=== PATIENT | female | born 1955 | race Caucasian/White ===

== ENCOUNTER 2016-09-30 16:35 | Emergency (ER) | payer OTHER ==
--- NOTE | 2016-09-30 18:18 | ED NURSING NOTES ---
Clinical Report - Nurses [facility] [address] [place] [address] 09/30/2016 16:38 Patient: ERROL FRANKLIN TRIAGE Triage time 1738 PM. Acuity: LEVEL 3. Chief Complaint: (ulcer on left lower leg). Alert. No acute distress. SEPSIS SCREEN: Sepsis Screen. Negative (no infection suspected/documented). MERCEDES COMA SCORE: Mercedes Coma Scale: 15- eyes open spontaneously (4); best verbal response- oriented x 4 (5); best motor response- obeys commands (6). --17:48 Claudia Patrick R.N. 17:37 09/30/16. BP: 135/81. HR: 91. RR: 16. O2 saturation: 97% on room air. Temp: 98.4 F (oral). Pain level now: 11/27. --17:48 Claudia Patrick R.N. Weight: 80.7 kg stated. Height/Length: 62 inches Per Patient. BMI: 32.6. --17:42 Claudia Patrick R.N. Medications None. --17:42 Claudia Patrick R.N. Medication/allergy information source: the patient. --17:48 Claudia Patrick R.N. Allergies No Known Drug Allergy. --17:42 Claudia Patrick R.N. History Arrived by private vehicle. Historian: patient. Primary physician (none). ( Pt states has suffered from ulcers in her lower extremities before, now presents from a clinic "unknown name"). This is a new problem and onset was gradual. (1 weeks). No fever, weakness, cough, difficulty breathing or skin rash. Denies muscle aches. Treatment ELEMENTARY SCHOOL PRINCIPAL: (cream- unknown). See EMS report. PAST MEDICAL HX: Immunizations: up-to-date. Last normal menstrual period unknown- years ago. SOCIAL HX: Never smoker. No alcohol use or drug use. No infectious disease exposure. ABUSE ASSESSMENT: No report of abuse. SELF HARM ASSESSMENT: A self harm assessment was performed. The patient answered "no" to the question "Do you have thoughts of harming or killing yourself?" and "Have you recently had thoughts about harming or killing others?". FALL RISK ASSESSMENT: Fall risk assessment completed. No fall risk identified. NUTRITIONAL RISK ASSESSMENT: The nutritional risk assessment revealed no deficiencies. FUNCTIONAL ASSESSMENT: Functional assessment: no impairments noted. LEARNING NEEDS ASSESSMENT: The learning needs assessment revealed no barriers. SKIN INTEGRITY ASSESSMENT: Skin integrity risk assessment completed. No skin integrity risk identified. --17:48 Claudia Patrick R.N. PROBLEMS: Dysfunctional Uterine Bleeding. Immunizations. LNMP - Last Normal Menstrual Period. Skin ulcer. Prolapsed uterus. --17:42 Claudia Patrick R.N. ADDITIONAL SURGERIES: Cholecystectomy. --17:42 Claudia Patrick R.N. Interventions ID band on patient. --17:48 Claudia Patrick R.N. PHYSICAL ASSESSMENT Ambulatory to room. ( Pt with left lower leg ulcer measuring [id number] with redness and tenderness around.). GENERAL / NEURO / PSYCH: Alert. Oriented X 4. Appears in no acute distress. RESPIRATORY: Respirations not labored. Breath sounds within normal limits. CVS: Pulses: left popliteal 2+, right dorsalis pedis 2+, left dorsalis pedis 2+, right posterior tibial 2+ and left posterior tibial 2+. Capillary refill less than 2 seconds. GI / : Abdomen nontender. SKIN: Skin intact. Skin is warm and dry. Normal skin turgor. --17:51 Claudia Patrick R.N. NURSING PROGRESS NOTES The initial plan of care for this patient has been created This plan of care was discussed with the patient. Patient ID band checked for patient name, birthdate and medical record number: patient confirmed. Blood samples drawn by tech per protocol ; labeled in presence of the patient and sent to lab: rainbow set. Reassurance given. Patient identifiers checked. Call light placed in reach. Side rails up x 1. Brakes of bed on. --17:52 Claudia Patrick R.N. Checked patient name and birthdate: patient confirmed. Blood samples drawn from the right antecubital space with syringe and 23g butterfly by tech per protocol ; labeled in presence of the patient and sent to lab: rainbow set: cardiac enzymes (1st set). --18:11 Oli Lawrence Checked patient name and birthdate: patient confirmed. Wound to left ankle swabbed for culture; collected by tech. Specimen labeled in the presence of the patient. --18:12 Oli Lawrence. DISPOSITION / DISCHARGE Condition at departure: unchanged and stable. The goals identified in the patient's plan of care were met. No learning barriers present. Discharge instructions provided and reviewed with the patient. Reviewed medication(s) side effects, precautions, dosing and course information. Prescription(s) given to the patient. Reviewed wound care instructions. Reviewed referral to a interior design teacher for followup (wound care clinic). Activity restrictions (minimal use of injured extremity and rest) reviewed. Patient verbalized understanding. Written instructions provided in Niuean. The patient was discharged by the physician technical support assistant. She was discharged home and accompanied by letter sorting machine operator. She left the Emergency Department ambulatory and via private vehicle. Rn Hedis driving. FALL RISK ASSESSMENT: Fall risk assessment completed. No fall risk identified. --18:48 Claudia Patrick R.N. 18:40 09/30/16. BP: 135/95 (regular adult cuff) taken on the left arm, via an automated monitor, while sitting. HR: 56. RR: 12. O2 saturation: 96% on room air. Temp: 98.2 F. Pain level now: 0/10. --18:48 Clauida Patrick R.N. Departure time: 1853 PM. --18:52 Claudia Patrick R.N. Locked/Released at 09/30/2016 18:52 by Claudia Patrick R.N.
--- NOTE | 2016-09-30 18:18 | ED CLINICAL REPORT ---
Clinical Report - Physicians/Mid Levels [facility] [address] [place] [address] 09/30/2016 16:38 Patient: ERROL FRANKLIN Time Seen: 17:53 Sep 30 2016. Arrived- By private vehicle. Historian- patient. HISTORY OF PRESENT ILLNESS Chief Complaint: SKIN RASH. 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 Not itchy or painful. It has been located on the left lower extremity. A cause has been identified. (The patient reports she has been self-medicating in treating her own pulse over the last 1 month. Today decided to come to the ER. No fevers no chills. Denies diabetic status. His has a history of poor vascular circulation.). Similar symptoms previously: None. REVIEW OF SYSTEMS No fever, chills, cough, nausea or diarrhea. All systems otherwise negative, except as recorded above. SOCIAL HISTORY Never smoker. No alcohol use or drug use. ADDITIONAL NOTES The nursing notes have been reviewed. PHYSICAL EXAM Vital Signs: 09/30/2016 17:37 BP: 135/81. HR: 91. RR: 16. O2 saturation: 97%. Temp: 98.4 F. Pain level now: 4/10. Appearance: Alert. No acute distress. CVS: Normal heart rate and rhythm. Heart sounds normal. Rate normal. Respiratory: No respiratory distress. Breath sounds normal. Skin: No erythema. No tender indurated area. No cellulitis. Skin rash present- left quarter size distal tib/fib, medial ulcer 2nd stage. No abscess. Neuro: Oriented X 3. LABS, X-RAYS, AND EKG Laboratory Tests: CBC w Diff: (KARTIK: 09/30/2016 17:58) ( MsgRcvd 09/30/2016 18:16) Final results Test Result Flag Units (Reference) WHITE BLOOD COUNT 8.2 K/uL (4.5-11.5) RED BLOOD COUNT 4.34 M/uL (4.00-5.20) HEMOGLOBIN 12.9 gm/dL (12.0-16.0) HEMATOCRIT 38.5 % (36.0-46.0) MEAN CELL VOLUME 89 fL (80-100) MEAN CORPUSCULAR HGB 30 pg (26-34) MEAN CORPUSCULAR HGB CONC 33 g/dL (31-37) RED CELL DISTRIBUTION WIDTH 13.5 % (11.6-14.8) PLATELET COUNT 261 K/uL (150-400) NEUTROPHIL % 73.7 % (50-75) LYMPH % 17.5 L % (25-40) MONO % 7.6 % (3-14) EOSINOPHIL % 1.0 % (0-4) BASOPHIL % 0.2 % (0-2) . PROGRESS AND PROCEDURES Course of Care: Non diabetic female with h/o peripheral vascular disease with small ulcer, with minimal erythema, and no signs of leukocytosis. Pt very stable. Good distal pulse. Good distal rom/ sensation. Pt stable. Pt wound packed, and dressings applied. POC glucose 83. Patient is stable. The patient's symptoms are unchanged. Patient/family counseled. Disposition: Discharged. CLINICAL IMPRESSION Stage 2 pressure ulcer with partial thickness skin loss on the left ankle. Inflammation present. INSTRUCTIONS (do not remove dressing for 3-4 days, cover while in shower, and follow up as instructed below). Prescription Medications: Keflex 500 mg: take 1 capsule orally every 6 hours for 7 days. No refills. Substitution is permissible. Follow-up with: [facility], , , [facility], [address] [place] [address] [address], [place] [phone] Follow up. Call for the next available appointment. Follow-up with: Ray Shepherd DPM, Podiatry, , [address] [place] [address] [address], [place], [address] Follow up. Call for the next available appointment. (Electronically signed by Eleonora Lui P.A.-C 09/30/2016 18:38)
--- NOTE | 2016-09-30 18:18 | ED ORDER SUMMARY ---
..... Patient: ERROL FRANKLIN OrderSheet [facility] VisitID: [id number] [address] [place] [address] 61y, F Registration Date/Time: 09/30/2016 ORDER SHEET Weight: 80.7 kg (stated) Allergies: No Known Drug Allergy GENERAL ORDERS: CBC w Diff Urgent (17:42 09/30/2016 EKoroleva P.A.-C) (17:53 EHassan R.N.) POC Glucose (17:42 09/30/2016 EKoroleva P.A.-C) (17:53 EHassan R.N.) Culture, Wound Surface (Ankle) (L) Urgent (17:45 09/30/2016 EKoroleva P.A.-C) (17:53 EHassan R.N.) MEDICATION ORDERS: IV FLUIDS: ORDER SHEET NOTES: [Electronically signed by Eleonora Lui PJanuaryAJanuary-Clemencia (18:38 09/30/2016)] [Electronically signed by Claudia Patrick R.N. (18:52 09/30/2016)] [Electronically locked/signed by Claudia Patrick R.N. (18:52 09/30/2016)]
--- NOTE | 2016-09-30 18:18 | ED CLINICAL REPORT ---
Clinical Report - Physicians/Mid Levels [facility] [address] [place] [address] 09/30/2016 16:38 Patient: ERROL FRANKLIN Time Seen: 17:53 Sep 30 2016. Arrived- By private vehicle. Historian- patient. HISTORY OF PRESENT ILLNESS Chief Complaint: SKIN RASH. 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 Not itchy or painful. It has been located on the left lower extremity. A cause has been identified. (The patient reports she has been self-medicating in treating her own pulse over the last 1 month. Today decided to come to the ER. No fevers no chills. Denies diabetic status. His has a history of poor vascular circulation.). Similar symptoms previously: None. REVIEW OF SYSTEMS No fever, chills, cough, nausea or diarrhea. All systems otherwise negative, except as recorded above. SOCIAL HISTORY Never smoker. No alcohol use or drug use. ADDITIONAL NOTES The nursing notes have been reviewed. PHYSICAL EXAM Vital Signs: 09/30/2016 17:37 BP: 135/81. HR: 91. RR: 16. O2 saturation: 97%. Temp: 98.4 F. Pain level now: 4/10. Appearance: Alert. No acute distress. CVS: Normal heart rate and rhythm. Heart sounds normal. Rate normal. Respiratory: No respiratory distress. Breath sounds normal. Skin: No erythema. No tender indurated area. No cellulitis. Skin rash present- left quarter size distal tib/fib, medial ulcer 2nd stage. No abscess. Neuro: Oriented X 3. LABS, X-RAYS, AND EKG Laboratory Tests: CBC w Diff: (KARTIK: 09/30/2016 17:58) ( MsgRcvd 09/30/2016 18:16) Final results Test Result Flag Units (Reference) WHITE BLOOD COUNT 8.2 K/uL (4.5-11.5) RED BLOOD COUNT 4.34 M/uL (4.00-5.20) HEMOGLOBIN 12.9 gm/dL (12.0-16.0) HEMATOCRIT 38.5 % (36.0-46.0) MEAN CELL VOLUME 89 fL (80-100) MEAN CORPUSCULAR HGB 30 pg (26-34) MEAN CORPUSCULAR HGB CONC 33 g/dL (31-37) RED CELL DISTRIBUTION WIDTH 13.5 % (11.6-14.8) PLATELET COUNT 261 K/uL (150-400) NEUTROPHIL % 73.7 % (50-75) LYMPH % 17.5 L % (25-40) MONO % 7.6 % (3-14) EOSINOPHIL % 1.0 % (0-4) BASOPHIL % 0.2 % (0-2) . PROGRESS AND PROCEDURES Course of Care: Non diabetic female with h/o peripheral vascular disease with small ulcer, with minimal erythema, and no signs of leukocytosis. Pt very stable. Good distal pulse. Good distal rom/ sensation. Pt stable. Pt wound packed, and dressings applied. POC glucose 83. Patient is stable. The patient's symptoms are unchanged. Patient/family counseled. Disposition: Discharged. CLINICAL IMPRESSION Stage 2 pressure ulcer with partial thickness skin loss on the left ankle. Inflammation present. INSTRUCTIONS (do not remove dressing for 3-4 days, cover while in shower, and follow up as instructed below). Prescription Medications: Keflex 500 mg: take 1 capsule orally every 6 hours for 7 days. No refills. Substitution is permissible. Follow-up with: [facility], , , [facility], [address] [place] [address] [address], [place] [phone] Follow up. Call for the next available appointment. Follow-up with: Ray Shepherd DPM, Podiatry, , [address] [place] [address] [address], [place], [address] Follow up. Call for the next available appointment. (Electronically signed by Eleonora Lui P.A.-C 09/30/2016 18:38)
--- NOTE | 2016-09-30 18:18 | ED NURSING NOTES ---
Clinical Report - Nurses [facility] [address] [place] [address] 09/30/2016 16:38 Patient: ERROL FRANKLIN TRIAGE Triage time 1738 PM. Acuity: LEVEL 3. Chief Complaint: (ulcer on left lower leg). Alert. No acute distress. SEPSIS SCREEN: Sepsis Screen. Negative (no infection suspected/documented). MERCEDES COMA SCORE: Mercedes Coma Scale: 15- eyes open spontaneously (4); best verbal response- oriented x 4 (5); best motor response- obeys commands (6). --17:48 Claudia Patrick R.N. 17:37 09/30/16. BP: 135/81. HR: 91. RR: 16. O2 saturation: 97% on room air. Temp: 98.4 F (oral). Pain level now: 11/27. --17:48 Claudia Patrick R.N. Weight: 80.7 kg stated. Height/Length: 62 inches Per Patient. BMI: 32.6. --17:42 Claudia Patrick R.N. Medications None. --17:42 Claudia Patrick R.N. Medication/allergy information source: the patient. --17:48 Claudia Patrick R.N. Allergies No Known Drug Allergy. --17:42 Claudia Patrick R.N. History Arrived by private vehicle. Historian: patient. Primary physician (none). ( Pt states has suffered from ulcers in her lower extremities before, now presents from a clinic "unknown name"). This is a new problem and onset was gradual. (1 weeks). No fever, weakness, cough, difficulty breathing or skin rash. Denies muscle aches. Treatment HOSPITAL[employer] WORKERS: (cream- unknown). See EMS report. PAST MEDICAL HX: Immunizations: up-to-date. Last normal menstrual period unknown- years ago. SOCIAL HX: Never smoker. No alcohol use or drug use. No infectious disease exposure. ABUSE ASSESSMENT: No report of abuse. SELF HARM ASSESSMENT: A self harm assessment was performed. The patient answered "no" to the question "Do you have thoughts of harming or killing yourself?" and "Have you recently had thoughts about harming or killing others?". FALL RISK ASSESSMENT: Fall risk assessment completed. No fall risk identified. NUTRITIONAL RISK ASSESSMENT: The nutritional risk assessment revealed no deficiencies. FUNCTIONAL ASSESSMENT: Functional assessment: no impairments noted. LEARNING NEEDS ASSESSMENT: The learning needs assessment revealed no barriers. SKIN INTEGRITY ASSESSMENT: Skin integrity risk assessment completed. No skin integrity risk identified. --17:48 Claudia Patrick R.N. PROBLEMS: Dysfunctional Uterine Bleeding. Immunizations. LNMP - Last Normal Menstrual Period. Skin ulcer. Prolapsed uterus. --17:42 Claudia Patrick R.N. ADDITIONAL SURGERIES: Cholecystectomy. --17:42 Claudia Patrick R.N. Interventions ID band on patient. --17:48 Claudia Patrick R.N. PHYSICAL ASSESSMENT Ambulatory to room. ( Pt with left lower leg ulcer measuring 7yaG3rd with redness and tenderness around.). GENERAL / NEURO / PSYCH: Alert. Oriented X 4. Appears in no acute distress. RESPIRATORY: Respirations not labored. Breath sounds within normal limits. CVS: Pulses: left popliteal 2+, right dorsalis pedis 2+, left dorsalis pedis 2+, right posterior tibial 2+ and left posterior tibial 2+. Capillary refill less than 2 seconds. GI / : Abdomen nontender. SKIN: Skin intact. Skin is warm and dry. Normal skin turgor. --17:51 Claudia Patrick R.N. NURSING PROGRESS NOTES The initial plan of care for this patient has been created This plan of care was discussed with the patient. Patient ID band checked for patient name, birthdate and medical record number: patient confirmed. Blood samples drawn by tech per protocol ; labeled in presence of the patient and sent to lab: rainbow set. Reassurance given. Patient identifiers checked. Call light placed in reach. Side rails up x 1. Brakes of bed on. --17:52 Claudia Patrick R.N. Checked patient name and birthdate: patient confirmed. Blood samples drawn from the right antecubital space with syringe and 23g butterfly by tech per protocol ; labeled in presence of the patient and sent to lab: rainbow set: cardiac enzymes (1st set). --18:11 Oli Lawrence Checked patient name and birthdate: patient confirmed. Wound to left ankle swabbed for culture; collected by tech. Specimen labeled in the presence of the patient. --18:12 Oli Lawrence. DISPOSITION / DISCHARGE Condition at departure: unchanged and stable. The goals identified in the patient's plan of care were met. No learning barriers present. Discharge instructions provided and reviewed with the patient. Reviewed medication(s) side effects, precautions, dosing and course information. Prescription(s) given to the patient. Reviewed wound care instructions. Reviewed referral to a cut off saw set up operator for followup (wound care clinic). Activity restrictions (minimal use of injured extremity and rest) reviewed. Patient verbalized understanding. Written instructions provided in Iranian. The patient was discharged by the physician human resources assistant. She was discharged home and accompanied by chha. She left the Emergency Department ambulatory and via private vehicle. Car Salter driving. FALL RISK ASSESSMENT: Fall risk assessment completed. No fall risk identified. --18:48 Claudia Patrick R.N. 18:40 09/30/16. BP: 135/95 (regular adult cuff) taken on the left arm, via an automated monitor, while sitting. HR: 56. RR: 12. O2 saturation: 96% on room air. Temp: 98.2 F. Pain level now: 0/10. --18:48 Claudia Patrick R.N. Departure time: 1853 PM. --18:52 Claudia Patrick R.N. Locked/Released at 09/30/2016 18:52 by Claudia Patrick R.N.
--- NOTE | 2016-09-30 18:18 | ED ORDER SUMMARY ---
..... Patient: ERROL FRANKLIN OrderSheet [facility] VisitID: [id number] [address] [place] [address] 61y, F Registration Date/Time: 09/30/2016 ORDER SHEET Weight: 80.7 kg (stated) Allergies: No Known Drug Allergy GENERAL ORDERS: CBC w Diff Urgent (17:42 09/30/2016 EKoroleva P.A.-C) (17:53 EHassan R.N.) POC Glucose (17:42 09/30/2016 EKoroleva P.A.-C) (17:53 EHassan R.N.) Culture, Wound Surface (Ankle) (L) Urgent (17:45 09/30/2016 EKoroleva P.A.-C) (17:53 EHassan R.N.) MEDICATION ORDERS: IV FLUIDS: ORDER SHEET NOTES: [Electronically signed by Eleonora Lui PJanuaryAJanuary-Clemencia (18:38 09/30/2016)] [Electronically signed by Claudia Patrick R.N. (18:52 09/30/2016)] [Electronically locked/signed by Claudia Patrick R.N. (18:52 09/30/2016)]
--- NOTE | 2016-09-30 18:52 | ED DISCHARGE INSTRUCTIONS ---
Patient: ERROL FRANKLIN General Instructions [facility] VisitID: [id number] [address] [place], [place] [id number] 61y, F Registration Date/Time: 09/30/2016 Stage 2 pressure ulcer with partial thickness skin loss on the left ankle. Inflammation present. INSTRUCTIONS (do not remove dressing for 3-4 days, cover while in shower, and follow up as instructed below). Prescription Medications: Keflex 500 mg: take 1 capsule orally every 6 hours for 7 days. No refills. Substitution is permissible. Follow-up with: [facility], , , [facility], [address] [facility]. [address], [facility] [address] Follow up. Call for the next available appointment. Follow-up with: Ray Shepherd DPM, Podiatry, , [address] [place] [address]. [address], [place], [address] Follow up. Call for the next available appointment. ADDITIONAL INFORMATION Decubitus Ulcer A decubitus ulcer starts as a pressure sore (red, tender area on skin). It is caused by lying on a bony area for long periods of time without turning, causing a decrease in blood flow to that part of the skin. Decubitus ulcers usually occur on the lower back, buttocks or heels in persons who spend most or all of their time in bed. Healing time is slow and depends on the size and depth of the ulcer. If a decubitus ulcer becomes infected, it will cause redness in the skin around the ulcer and pus will drain from the wound. If not treated early, a decubitus infection can spread to the bloodstream or nearby bone. Home care The following guidelines will help you care for your wound at home: All ulcers should be looked at every day with good lighting to watch for signs of infection. At the same time, check other skin pressure points for early signs of a skin changes. Changing positions every few hours allows blood to flow to the pressure areas. This is essential for healing to occur. Use of special mattresses (foam, water, air mattresses) and gelpads will help reduce the pressure on the skin. Special skin coverings that remain in place may be prescribed. If a simple bandage is used, change it daily and clean the ulcer with sterile saline or another solution advised by your doctor. Pat dry. Apply any prescribed lotion or cream. Cover with a dry clean gauze pad. Bed linen should be kept clean and dry. Avoid soiling the ulcer with feces or urine. If this is not possible, minimize the time of contact with the feces or urine. Follow-up care Follow up with your doctor as advised by our staff. When to seek medical care Get prompt medical attention if any of the following occur: Increasing redness around the wound Increasing local pain or swelling Pus draining from a wound (not already treated) Unexplained fever over 100.4F (38.0C) oral, or higher You have been given the following additional information: Decubitus Ulcer (Electronically signed by Eleonora Lui P.A.-C 09/30/2016 18:38)
--- NOTE | 2016-09-30 18:52 | ED DISCHARGE INSTRUCTIONS ---
Patient: ERROL FRANKLIN General Instructions [facility] VisitID: [id number] [address] [place], [place] [id number] 61y, F Registration Date/Time: 09/30/2016 Stage 2 pressure ulcer with partial thickness skin loss on the left ankle. Inflammation present. INSTRUCTIONS (do not remove dressing for 3-4 days, cover while in shower, and follow up as instructed below). Prescription Medications: Keflex 500 mg: take 1 capsule orally every 6 hours for 7 days. No refills. Substitution is permissible. Follow-up with: [facility], , , [facility], [address]. [address], [facility] [address] Follow up. Call for the next available appointment. Follow-up with: Ray Shepherd DPM, Podiatry, , [address] [place] [address]. [address], [place], [address] Follow up. Call for the next available appointment. ADDITIONAL INFORMATION Decubitus Ulcer A decubitus ulcer starts as a pressure sore (red, tender area on skin). It is caused by lying on a bony area for long periods of time without turning, causing a decrease in blood flow to that part of the skin. Decubitus ulcers usually occur on the lower back, buttocks or heels in persons who spend most or all of their time in bed. Healing time is slow and depends on the size and depth of the ulcer. If a decubitus ulcer becomes infected, it will cause redness in the skin around the ulcer and pus will drain from the wound. If not treated early, a decubitus infection can spread to the bloodstream or nearby bone. Home care The following guidelines will help you care for your wound at home: All ulcers should be looked at every day with good lighting to watch for signs of infection. At the same time, check other skin pressure points for early signs of a skin changes. Changing positions every few hours allows blood to flow to the pressure areas. This is essential for healing to occur. Use of special mattresses (foam, water, air mattresses) and gelpads will help reduce the pressure on the skin. Special skin coverings that remain in place may be prescribed. If a simple bandage is used, change it daily and clean the ulcer with sterile saline or another solution advised by your doctor. Pat dry. Apply any prescribed lotion or cream. Cover with a dry clean gauze pad. Bed linen should be kept clean and dry. Avoid soiling the ulcer with feces or urine. If this is not possible, minimize the time of contact with the feces or urine. Follow-up care Follow up with your doctor as advised by our staff. When to seek medical care Get prompt medical attention if any of the following occur: Increasing redness around the wound Increasing local pain or swelling Pus draining from a wound (not already treated) Unexplained fever over 100.4F (38.0C) oral, or higher You have been given the following additional information: Decubitus Ulcer (Electronically signed by Eleonora Lui P.A.-C 09/30/2016 18:38)
--- NOTE | 2016-09-30 18:52 | ED MED RECONCILIATION SUMMARY ---
Patient: ERROL FRANKLIN Medication Reconciliation Report [facility] VisitID: [id number] [address] [place] [address] 61y, F Registration Date/Time: 09/30/2016 Weight: 80.7 kg Height/Length: 62 in. BMI: 32.6 ALLERGIES: No Known Drug Allergy The patient's Home Medications are listed below: NONE. The source(s) of the original Home Medication information: patient The following Medications were given to the patient in the Emergency Department: None. The following Medications were prescribed to the patient: Keflex 500 mg: take 1 capsule orally every 6 hours for 7 days. No refills. Substitution is permissible. -- Eleonora Lui P.A.-C
--- NOTE | 2016-09-30 18:52 | ED MAR SUMMARY ---
..... Medication Administration Record [facility] [address] [place], [place] [id number] Patient: ERROL FRANKLIN Visit ID: [id number] 61y, F Weight: 80.7 kg Height/Length: 62 in BMI: 32.6 ALLERGIES: No Known Drug Allergy
--- NOTE | 2016-09-30 18:52 | ED MED RECONCILIATION SUMMARY ---
Patient: ERROL FRANKLIN Medication Reconciliation Report [facility] VisitID: [id number] [address] [place] [address] 61y, F Registration Date/Time: 09/30/2016 Weight: 80.7 kg Height/Length: 62 in. BMI: 32.6 ALLERGIES: No Known Drug Allergy The patient's Home Medications are listed below: NONE. The source(s) of the original Home Medication information: patient The following Medications were given to the patient in the Emergency Department: None. The following Medications were prescribed to the patient: Keflex 500 mg: take 1 capsule orally every 6 hours for 7 days. No refills. Substitution is permissible. -- Eleonora Lui P.A.-C
--- NOTE | 2016-09-30 18:52 | ED MAR SUMMARY ---
..... Medication Administration Record [facility] [address] [place], [place] [id number] Patient: ERROL FRANKLIN Visit ID: [id number] 61y, F Weight: 80.7 kg Height/Length: 62 in BMI: 32.6 ALLERGIES: No Known Drug Allergy
== END 2016-09-30 18:53 | disposition home or self-care (01) ==
LOC: ED SRH 16:35
DX: L89.522 Pressure ulcer of left ankle, stage 2 (principal); I73.9 Peripheral vascular disease, unspecified
CPT/HCPCS: 90070; 90074; 90131; 90309; 95059